=== PATIENT | male | born 1985 | race Caucasian/White ===

== ENCOUNTER → 2016-08-02 | Outpatient (CLI) | payer BC, OTHER ==
[~2016-08-02] MED LIST: IBUPROFEN; LEVAQUIN PO; MAGNESIUM OXID200 MG PO
== END ==
LOC: CAT 08:26
DX: R10.30 Lower abdominal pain, unspecified (principal)

== ENCOUNTER → 2017-03-16 | Outpatient (CLI) | payer BC, OTHER | LOC: ULTRA 08:18 | DX: R16.0 Hepatomegaly, not elsewhere classified (principal) ==

== ENCOUNTER → 2019-01-08 | Outpatient (CLI) | payer BC | LOC: RAD 12:53 | DX: R05 Cough (principal) ==

== ENCOUNTER → 2019-06-27 | Outpatient (CLI) | payer OTHER | LOC: CAT 06-26 09:06 | DX: Z13.6 Encounter for screening for cardiovascular disorders (principal); I25.10 Atherosclerotic heart disease of native coronary artery without angina pectoris; E78.00 Pure hypercholesterolemia, unspecified ==